=== PATIENT | female | born 1970 | race Caucasian/White ===

== ENCOUNTER → 2016-12-06 | Outpatient (CLI) | payer OTHER | LOC: FIMAGING 11:08 | DX: Z12.31 Encounter for screening mammogram for malignant neoplasm of breast (principal) | CPT/HCPCS: G0202 ==

== ENCOUNTER → 2017-03-16 | Outpatient (CLI) | payer OTHER ==
--- NOTE | 2017-03-16 16:20 | CPEKG ---
Heart Rate: 55 RR Interval: 1091 P-R Interval: 168 QRSD Interval: 78 QT Interval: 440 QTC Interval: 421 P [place]ign[place]: 70 QRS [place]: 78 T Wave [place]: 39 EKG Severity - ABNORMAL ECG - EKG Impression: SINUS RHYTHM EKG Impression: LEFT VENTRICULAR HYPERTROPHY Electronically Signed By: Isreal Minaya 16-Mar-2017 16:44:08
== END ==
LOC: FCP 15:46
DX: Z01.818 Encounter for other preprocedural examination (principal); R94.31 Abnormal electrocardiogram [ECG] [EKG]

== ENCOUNTER 2017-12-13 10:39 | Emergency (ER) | payer OTHER ==
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
[2017-12-13] MEDS ORDERED: HYDROmorphONE/DILAUDID 2 MG/ML INJ IVP ONE ×2 (12:26→15:21)
[2017-12-13] MEDS ORDERED: IOPAMIDOL (ISOVUE 370) 100 ML BTL IV ONE (12:56)
[2017-12-13 14:16] VITALS: RESP 18
[2017-12-13 19:33] VITALS: BP 133/95; PULSE 61; TEMP 97.9; O2SAT 97
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
== END 2017-12-13 19:35 | disposition home or self-care (01) ==
DX: R07.89 Other chest pain (principal); J45.909 Unspecified asthma, uncomplicated
CPT/HCPCS: 82947-QW; 96374; J1170; Q9967

== ENCOUNTER → 2018-02-17 | Outpatient (CLI) | payer OTHER | LOC: FIMAGING 10:53 | PROVIDERS: ATTEND Internal Medicine Rheumatology | DX: R07.81 Pleurodynia (principal); R07.89 Other chest pain | CPT/HCPCS: A9503 ==

== ENCOUNTER 2018-10-18 12:33 | Emergency (ER) | payer OTHER ==
--- NOTE | 2018-10-18 12:56 | EDPHY ---
H & P Time Seen by Provider: 10/18/18 12:52 HPI/ROS: Chief complaint. Chest pain, shortness of breath HPI. Patient is a 48-year-old female who presents with sharp left-sided chest pain that began at 11:00 a.m.. She notes shortness of breath with exertion during the workout this morning. She has a history of chest wall pain with 9 surgeries. Her pain is on the left side without radiation. Slightly dizzy and some nausea. No fever cough. Her pain is worse with deep breathing. Yesterday she was diagnosed with superficial phlebitis in the right lower extremity. She had had some swelling that is no longer there. No ultrasound was performed. She has nausea but no abdominal pain. ROS 10 systems were reviewed and negative with the exception of the elements mentioned in the history of present illness Past Medical/Surgical History: Chest wall pain with surgeries. Chronic pain. Reactive airway disease No family history of early coronary artery disease Social History: , nonsmoker, no alcohol Smoking Status: Never smoked Physical Exam: General Appearance: Alert pleasant well-developed female mild distress vital signs stable initial blood pressure 152/112 Eyes: Pupils equal and round no pallor or injection. ENT, Mouth: Mucous membranes are moist. Respiratory: There are no retractions, lungs are clear to auscultation. Cardiovascular: Regular rate and rhythm. Gastrointestinal: Abdomen is soft and nontender, no masses, bowel sounds normal. Neurological: Awake and alert, sensory and motor exams grossly normal. Skin: Warm and dry, no rashes. Musculoskeletal: Neck is supple nontender. Point tender left anterior chest wall recreating patient's symptoms Extremities symmetrical, full range of motion. No evidence of swelling or phlebitis. No calf tenderness Psychiatric: Patient is oriented X 3, there is no agitation. Constitutional: Initial Vital Signs Temperature (C) 36.9 C 10/18/18 12:36 Heart Rate 68 10/18/18 12:36 Respiratory Rate 18 10/18/18 12:36 Blood Pressure 152/112 H 10/18/18 12:36 O2 Sat (%) 95 10/18/18 12:36 O2 Delivery Mode Room Air Allergies/Adverse Reactions: adhesive tape Allergy (Verified 10/18/18 12:35) aspirin Allergy (Verified 10/18/18 12:35) hydrocodone Allergy (Verified 10/18/18 12:35) Home Medications: Medication Instructions Recorded Ansaid 12/13/17 Dilaudid 12/13/17 Naproxen 12/13/17 Nasal [place] 12/13/17 Qvar 12/13/17 Ranitidine HCl 12/13/17 Singulair 12/13/17 Spiriva Handihaler 12/13/17 Ventolin Hfa 12/13/17 Xyzal 12/13/17 Medical Decision Making - Diagnostics EKG Interpretation: EKG interpreted by me normal sinus rhythm normal interval and axis. QRS is normal there is no significant ST elevation or depression. Some T-wave flattening inferiorly. 1 PVC. Rate is 63 Repeat EKG interpreted me shows normal sinus rhythm normal interval and axis. QRS normal. Inverted T-waves lead 3. No significant ST elevation or depression. Rate 61 Imaging Results: Imaging Impressions Chest/Thorax CTA 10/18/18 13:27 Impression: There is no CT evidence of pulmonary artery thromboembolic disease. Findings were discussed with LIV MORALES MD at 14:39, on 10/18/2018. Chest CT reviewed by me and discussed with Dr. Sibley shows no evidence for pulmonary embolus. ORIF of the left clavicle. Previous surgery on her sternum and xiphoid. No change from previous CT December 2007 Procedures: IV normal saline, monitor. Zofran for nausea ED Course/Re-evaluation: Re-evaluation 2:00 p.m.. Patient tells me that she is quite uncomfortable in her chest and was requesting pain medication. She is given Dilaudid 0.5 mg IV Re-evaluation 2:25 p.m. After Dilaudid patient is much more comfortable. 2:45 p.m. patient and I discussed imaging and lab results. We discussed recommendation for repeat EKG and troponin. She expresses understanding and agreement Repeat troponin is 0 Re-evaluation 3:25 p.m.. Patient is stable. She and I discussed imaging and lab results. We discussed treatment plan. She is offered admission but declines. We discussed criteria for return and importance of follow-up and further evaluation. She expresses understanding and agreement Differential Diagnosis: With a recent diagnosi of superficial phlebitis without ultrasound and now no longer having any swelling and having pleuritic left-sided chest pain I ordered chest CT for pulmonary embolus. I think D-dimer likely would be high. Concern is the DVT that is now gone to the left lung. This may be chest wall discomfort. She was tender to palpation on exam recreating her symptoms. No evidence for pulmonary embolus or acute coronary syndrome. Heart score 0-1 for history. EKG initially shows some nonspecific T-wave abnormalities so we gave her a 1. Age gives patient a 1. Total heart score is 2-2.5 - Data Points Laboratory Results: Laboratory Results 10/18/18 13:00 10/18/18 13:00 10/18/18 10/18/18 10/18/18 15:03 13:40 13:00 WBC RBC Hgb Hct MCV MCH MCHC RDW Plt Count MPV Neut % (Auto) Lymph % (Auto) [place] % (Auto) Eos % (Auto) Baso % (Auto) Nucleat RBC Rel Count Absolute Neuts (auto) Absolute Lymphs (auto) Absolute Monos (auto) Absolute Eos (auto) Absolute Basos (auto) Absolute Nucleated RBC Immature Gran % Immature Gran # D-Dimer 0.49 ug/mLFEU ug/mLFEU (0.00-0.50) Sodium Potassium Chloride Carbon Dioxide Anion Gap BUN Creatinine Estimated GFR Glucose Calcium POC Troponin I 0.00 ng/mL ng/mL 0.00 ng/mL ng/mL (0.00-0.08) (0.00-0.08) 10/18/18 10/18/18 13:00 13:00 WBC 11.93 10^3/uL H 10^3/uL (3.80-9.50) RBC 5.47 10^6/uL H 10^6/uL (4.18-5.33) Hgb 17.4 g/dL H g/dL (12.6-16.3) Hct 51.2 % H % (38.0-47.0) MCV 93.6 fL fL (81.5-99.8) MCH 31.8 pg pg (27.9-34.1) MCHC 34.0 g/dL g/dL (32.4-36.7) RDW 12.8 % % (11.5-15.2) Plt Count 335 10^3/uL 10^3/uL (150-400) MPV 10.2 fL fL (8.7-11.7) Neut % (Auto) 75.8 % H % (39.3-74.2) Lymph % (Auto) 17.4 % % (15.0-45.0) [place] % (Auto) 5.2 % % (4.5-13.0) Eos % (Auto) 0.4 % L % (0.6-7.6) Baso % (Auto) 0.5 % % (0.3-1.7) Nucleat RBC Rel Count 0.0 % % (0.0-0.2) Absolute Neuts (auto) 9.04 10^3/uL H 10^3/uL (1.70-6.50) Absolute Lymphs (auto) 2.08 10^3/uL 10^3/uL (1.00-3.00) Absolute Monos (auto) 0.62 10^3/uL 10^3/uL (0.30-0.80) Absolute Eos (auto) 0.05 10^3/uL 10^3/uL (0.03-0.40) Absolute Basos (auto) 0.06 10^3/uL 10^3/uL (0.02-0.10) Absolute Nucleated RBC 0.00 10^3/uL 10^3/uL (0-0.01) Immature Gran % 0.7 % % (0.0-1.1) Immature Gran # 0.08 10^3/uL 10^3/uL (0.00-0.10) D-Dimer Sodium 138 mEq/L mEq/L (135-145) Potassium 3.9 mEq/L mEq/L (3.5-5.2) Chloride 103 mEq/L mEq/L (97-110) Carbon Dioxide 27 mEq/l mEq/l (22-31) Anion Gap 8 mEq/L mEq/L (6-14) BUN 23 mg/dL mg/dL (7-23) Creatinine 0.8 mg/dL mg/dL (0.6-1.0) Estimated GFR > 60 Glucose 89 mg/dL mg/dL (70-100) Calcium 10.0 mg/dL mg/dL (8.5-10.4) POC Troponin I Medications Given: Discontinued Medications Hydromorphone HCl (Dilaudid) 0.5 mg IVP EDNOW ONE Stop: 10/18/18 14:04 Last Admin: 10/18/18 14:06 Dose: 0.5 mg Sodium Chloride (Ns) 1,000 mls @ 0 mls/hr IV EDNOW ONE; Wide Open PRN Reason: Protocol Stop: 10/18/18 13:27 Last Admin: 10/18/18 13:29 Dose: 1,000 mls Ondansetron HCl (Zofran) 4 mg IVP EDNOW ONE Stop: 10/18/18 13:28 Last Admin: 10/18/18 13:29 Dose: 4 mg Point of Care Test Results: Chemistry 10/18/18 10/18/18 15:03 13:40 POC Troponin I 0.00 ng/mL ng/mL 0.00 ng/mL ng/mL (0.00-0.08) (0.00-0.08) Departure - Departure Disposition: Home, Routine, Self-Care Clinical Impression: Chest pain Qualifiers: Chest pain type: unspecified Qualified Code(s): R07.9 - Chest pain, unspecified Condition: Good Instructions: Chest Pain (ED) Additional Instructions: Easy activity today. Return for further chest discomfort or trouble breathing Follow-up with Cardiology for your chest pain. Follow-up with Hematology for elevated hematocrit. Re-evaluation in the next 2-3 days by doctor Cheko or Cardiology without fail Referrals: NONE *PRIMARY CARE P,. [Primary Care Provider] - As per Instructions [facility] [Provider Group] - As per Instructions Crow Nur MD [Medical Doctor] - As per Instructions Liv Gil MD [Medical Doctor] - As per Instructions
[2018-10-18] MEDS ORDERED: NS 1,000 ML IV ONE (13:26)
[2018-10-18] MEDS ORDERED: ONDANSETRON 4 MG/2 ML VIAL ONE (13:26)
[2018-10-18] MEDS ORDERED: ONDANSETRON 4 MG/2 ML VIAL IVP ONE (13:27)
[2018-10-18 13:35] LABS: PLATELET COUNT 335 10^3/uL (150-400)
--- NOTE | 2018-10-18 13:35 | CPEKG ---
Test Reason : OPEN Blood Pressure : / mmHG Vent. Rate : 063 BPM Atrial Rate : 064 BPM P-R Int : 160 ms QRS Dur : 081 ms QT Int : 378 ms P-R-T Axes : 071 051 009 degrees QTc Int : 387 ms Sinus rhythm Ventricular premature complex Borderline T wave abnormalities Confirmed by Ulices Hodges ([id number]) on 10/18/2018 1:35:14 PM Referred By: Ulices Hodges Confirmed By:Ulices Hodges
[2018-10-18] MEDS ORDERED: HYDROmorphONE/DILAUDID 2 MG/ML INJ IVP ONE (14:03)
[2018-10-18] MEDS ORDERED: IOHEXOL 350mgI/ML (OMNIPAQUE) 150 ML BTL IV ONE (14:05)
[2018-10-18] MEDS ORDERED: HYDROmorphONE/DILAUDID 1 MG/ML INJ ONE (14:05)
[2018-10-18 14:09] VITALS: BP 112/87
--- NOTE | 2018-10-18 15:04 | CPEKG ---
Test Reason : OPEN Blood Pressure : / mmHG Vent. Rate : 061 BPM Atrial Rate : 061 BPM P-R Int : 168 ms QRS Dur : 072 ms QT Int : 424 ms P-R-T Axes : 071 046 013 degrees QTc Int : 427 ms Sinus rhythm Probable left atrial enlargement Confirmed by Liv Hodges ([id number]) on 10/18/2018 3:03:41 PM Referred By: LIV HODGES Confirmed By:Liv Hodges
== END 2018-10-18 15:53 | disposition home or self-care (01) ==
DX: R07.89 Other chest pain (principal); E86.9 Volume depletion, unspecified; G89.29 Other chronic pain; J45.909 Unspecified asthma, uncomplicated
CPT/HCPCS: 84484-ER; 96374; J1170; J2405; Q9967

== ENCOUNTER 2018-10-29 16:05 | Emergency (ER) | payer OTHER ==
--- NOTE | 2018-10-29 16:55 | EDPHY ---
H & P Time Seen by Provider: 10/29/18 16:42 HPI/ROS: Chief complaint. Calf pain HPI. Patient 40-year-old female with recent history of superficial phlebitis in her right leg. She was out for run today and had posterior calf pain that caused her to stop her run workout. No other injury. Pain is to the posterior right calf. No swelling. No symptoms above the knee. She has some chronic chest wall pain but otherwise no shortness of breath or chest pain with inspiration ROS 10 systems were reviewed and negative with the exception of the elements mentioned in the history of present illness Past Medical/Surgical History: Chronic chest wall pain, recent superficial phlebitis, asthma Social History: , nonsmoker, no alcohol Smoking Status: Never smoked Physical Exam: General Appearance: Alert pleasant well-developed female mild distress vital signs are stable Eyes: Pupils equal and round no pallor or injection. ENT, Mouth: Mucous membranes are moist. Respiratory: There are no retractions, lungs are clear to auscultation. Cardiovascular: Regular rate and rhythm. Gastrointestinal: Abdomen is soft and nontender, no masses, bowel sounds normal. Neurological: Awake and alert, sensory and motor exams grossly normal. Skin: Warm and dry, no rashes. Musculoskeletal: Neck is supple nontender. Extremities tenderness to mid posterior right calf. No erythema. No obvious swelling. Distal motor vascular sensitivity is intact Psychiatric: Patient is oriented X 3, there is no agitation. Constitutional: Initial Vital Signs Heart Rate 55 L 10/29/18 16:07 Respiratory Rate 16 10/29/18 16:07 Blood Pressure 143/106 H 10/29/18 16:07 O2 Sat (%) 95 10/29/18 16:07 O2 Delivery Mode Room Air Allergies/Adverse Reactions: adhesive tape Allergy (Verified 10/29/18 16:14) aspirin Allergy (Verified 10/29/18 16:14) hydrocodone Allergy (Verified 10/29/18 16:14) Home Medications: Medication Instructions Recorded Dilaudid 12/13/17 Naproxen 12/13/17 Nasal [place] 12/13/17 Qvar 12/13/17 Ranitidine HCl 12/13/17 Singulair 12/13/17 Spiriva [place] 12/13/17 Ventolin Hfa 12/13/17 Xyzal 12/13/17 Rifaximin 02/17/19 Medical Decision Making - Diagnostics Imaging Results: Imaging Impressions Extremity Venous Study 10/29/18 17:04 Impression: No deep venous thrombosis right leg. Results called to Dr. Hodges at 5:55 PM Ultrasound shows no evidence for DVT ED Course/Re-evaluation: Re-evaluation patient remained stable. She and I discussed imaging study results, treatment plan including criteria for return importance of follow-up further evaluation. She expresses understanding and agreement Differential Diagnosis: I considered DVT, calf strain - Data Points Laboratory Results: Laboratory Results 10/29/18 17:10 10/29/18 17:10 WBC 7.53 10^3/uL 10^3/uL (3.80-9.50) RBC 4.56 10^6/uL 10^6/uL (4.18-5.33) Hgb 14.7 g/dL g/dL (12.6-16.3) Hct 43.8 % % (38.0-47.0) MCV 96.1 fL fL (81.5-99.8) MCH 32.2 pg pg (27.9-34.1) MCHC 33.6 g/dL g/dL (32.4-36.7) RDW 13.3 % % (11.5-15.2) Plt Count 265 10^3/uL 10^3/uL (150-400) MPV 10.3 fL fL (8.7-11.7) Neut % (Auto) 56.0 % % (39.3-74.2) Lymph % (Auto) 32.8 % % (15.0-45.0) [place] % (Auto) 9.7 % % (4.5-13.0) Eos % (Auto) 0.5 % L % (0.6-7.6) Baso % (Auto) 0.5 % % (0.3-1.7) Nucleat RBC Rel Count 0.0 % % (0.0-0.2) Absolute Neuts (auto) 4.21 10^3/uL 10^3/uL (1.70-6.50) Absolute Lymphs (auto) 2.47 10^3/uL 10^3/uL (1.00-3.00) Absolute Monos (auto) 0.73 10^3/uL 10^3/uL (0.30-0.80) Absolute Eos (auto) 0.04 10^3/uL 10^3/uL (0.03-0.40) Absolute Basos (auto) 0.04 10^3/uL 10^3/uL (0.02-0.10) Absolute Nucleated RBC 0.00 10^3/uL 10^3/uL (0-0.01) Immature Gran % 0.5 % % (0.0-1.1) Immature Gran # 0.04 10^3/uL 10^3/uL (0.00-0.10) Departure - Departure Disposition: Home, Routine, Self-Care Clinical Impression: Strain of calf muscle Condition: Good Instructions: Muscle Strain (ED) Additional Instructions: Heat Activity as tolerated Tylenol as needed for discomfort Return for worsening symptoms including worsening pain and swelling Referrals: NONE *PRIMARY CARE P,. [Primary Care Provider] - As per Instructions
[2018-10-29 17:28] LABS: PLATELET COUNT 265 10^3/uL (150-400)
[2018-10-29 18:11] VITALS: BP 146/88
== END 2018-10-29 18:11 | disposition home or self-care (01) ==
DX: S86.811A Strain of other muscle(s) and tendon(s) at lower leg level, right leg, initial encounter (principal); X50.9XXA Other and unspecified overexertion or strenuous movements or postures, initial encounter; Y92.9 Unspecified place or not applicable; Y99.9 Unspecified external cause status; Y93.9 Activity, unspecified

== ENCOUNTER → 2019-02-09 | Outpatient (CLI) | payer OTHER | LOC: BMCIMAGING 09:40 ==